=== PATIENT | female | born 1990 | race Two or more races ===

== ENCOUNTER 2017-06-09 05:50 | Inpatient (IN) | payer OTHER ==
[~2017-06-09] VITALS: Ht 172.7 cm; Wt 93.0 kg
[2017-06-09] MEDS ORDERED: AMPICILLIN 2 GM in SODIUM CHLORIDE 0.9% 100 ML IVPB STA (05:53)
[2017-06-09] MEDS ORDERED: OXYTOCIN 30U/ 0.9% NaCL 500ML 500 ML IV ONE (05:53)
[2017-06-09] MEDS ORDERED: OXYTOCIN 30U/ 0.9% NaCL 500ML 500 ML IV PRN (05:53)
[2017-06-09] MEDS ORDERED: ONDANSETRON 2MG/ML, 2ML IVPush PRN ×2 (06:00→11:00)
[2017-06-09] MEDS ORDERED: PLEASE ENTER ALLERGIES MC SCH (06:00)
[2017-06-09] MEDS ORDERED: FENTANYL PF 100 MCG/2ML IVPush PRN (06:00)
[2017-06-09] MEDS ORDERED: FENTANYL PF 100 MCG/2ML IV PRN (06:00)
[2017-06-09] MEDS: LACTATED RINGERS 1,000 ML IV SCH ×5 (06:13→21:53)
[2017-06-09 06:14] VITALS: BP 120/79
[2017-06-09 06:15] LABS: BASOPHILS # (AUTO) 0.04 x10^3/uL (0-0.1); BASOPHILS % (AUTO) 0 % (0-1); EOSINOPHILS # (AUTO) 0.07 x10^3/uL (0-0.4); EOSINOPHILS % (AUTO) 1 % (1-7); LYMPHOCYTES # (AUTO) 1.84 x10^3/uL (1-3.4); LYMPHOCYTES % (AUTO) 19 % (22-44); MD NO; MEAN CORPUSCULAR HGB CONC 33.9 g/dL (32.4-35.8); MEAN CORPUSCULAR VOLUME 91.6 fL (80-100); MEAN PLATELET VOLUME 8.6 fL (7.4-10.4); MONOCYTES # (AUTO) 0.76 x10^3/uL (0.2-0.8); MONOCYTES % (AUTO) 8 % (2-9); NEUTROPHILS # (AUTO) 7.14 x10^3/uL (1.8-6.8); NEUTROPHILS % (AUTO) 73 % (42-75); PLATELET COUNT 191 x10^3/uL (130-400); RED BLOOD COUNT 3.93 x10^6/uL (3.82-5.3); RED CELL DISTRIBUTION WIDTH 13.1 % (9.6-15.2)
[2017-06-09] MEDS ORDERED: PREN-3 PO (06:21)
[2017-06-09] MEDS ORDERED: NEWBORN KIT ONE (06:25)
[2017-06-09] MEDS ORDERED: FLU VACC QS2017-18 (36MOS+) UP/PF 0.5 ML IM-VACC ONE (06:30)
[2017-06-09] MEDS ORDERED: FENTANYL PF 100 MCG/2ML ONE (10:07)
[2017-06-09] MEDS ORDERED: FENTANYL/BUPIV./NS/PF 250 ML EPIDCONT ONE ×2 (10:07→10:10)
[2017-06-09] MEDS ORDERED: BUPIVACAINE 0.25% ONE ×2 (10:08→10:10)
[2017-06-09] MEDS ORDERED: LIDOCAINE/PF 1.5%-EPI 1:200K, 30ML ONE (10:10)
[2017-06-09] MEDS ORDERED: EPHEDRINE 50 MG/ML, 1ML ONE (10:10)
[2017-06-09] MEDS: AMPICILLIN 1 GM in SODIUM CHLORIDE 0.9% 50 ML IVPB SCH ×3 (10:42→14:15)
[2017-06-09] MEDS ORDERED: FENTANYL/BUPIV./NS/PF 250 ML EPIDCONT SCH (10:47)
[2017-06-09] MEDS ORDERED: LACTATED RINGERS 1,000 ML IVBOLUS PRN (11:00)
[2017-06-09] MEDS ORDERED: EPHEDRINE 50 MG/ML, 1ML IVPush PRN (11:00)
[2017-06-09] MEDS ORDERED: OXYTOCIN 30U/ 0.9% NaCL 500ML 0 ML ONE (14:05)
[2017-06-09] MEDS ORDERED: MISOPROSTOL 200 MCG TABLET ONE (14:05)
[2017-06-09] MEDS ORDERED: LIDOCAINE 1%, 20ML ONE (14:05)
[2017-06-09] MEDS: OXYTOCIN 30U/ 0.9% NaCL 500ML 500 ML IV SCH (15:41)
[2017-06-09] MEDS ORDERED: MISOPROSTOL 200 MCG TABLET SL PRN (16:00)
[2017-06-09] MEDS ORDERED: ONDANSETRON 2MG/ML, 2ML IV PRN (16:00)
[2017-06-09] MEDS ORDERED: OXYcodone/APAP 5/325MG TABLET PO PRN (16:00)
[2017-06-09] MEDS ORDERED: OXYcodone IR 5MG TABLET PO PRN (16:00)
[2017-06-09] MEDS ORDERED: IBUPROFEN 600 MG TABLET ONE (16:32)
[2017-06-09] MEDS: IBUPROFEN 600 MG TABLET PO PRN ×2 (16:33→22:02)
[2017-06-09 18:05] VITALS: BP 111/65
[2017-06-09 19:00] VITALS: BP 101/64
[2017-06-09] MEDS ORDERED: DIPH,PERTUSS(ACELL),TET VAC/PF NC IM-VACC ONE (19:30)
[2017-06-09] MEDS: DOCUSATE 100 MG CAPSULE PO PRN (22:01)
[2017-06-09 23:30] VITALS: BP 108/69
[2017-06-10 00:09] LABS: BASOPHILS # (AUTO) 0.07 x10^3/uL (0-0.1); BASOPHILS % (AUTO) 1 % (0-1); EOSINOPHILS # (AUTO) 0.03 x10^3/uL (0-0.4); EOSINOPHILS % (AUTO) 0 % (1-7); LYMPHOCYTES % (AUTO) 14 % (22-44); MD NO; MEAN CORPUSCULAR HGB CONC 33.5 g/dL (32.4-35.8); MEAN CORPUSCULAR VOLUME 92.6 fL (80-100); MEAN PLATELET VOLUME 9.1 fL (7.4-10.4); MONOCYTES % (AUTO) 7 % (2-9); NEUTROPHILS # (AUTO) 11.57 x10^3/uL (1.8-6.8); NEUTROPHILS % (AUTO) 79 % (42-75); PLATELET COUNT 184 x10^3/uL (130-400); RED BLOOD COUNT 3.48 x10^6/uL (3.82-5.3); RED CELL DISTRIBUTION WIDTH 13.7 % (9.6-15.2)
[2017-06-10] MEDS: OXYTOCIN 30U/ 0.9% NaCL 500ML 500 ML IV SCH (01:41)
[2017-06-10] MEDS: LACTATED RINGERS 1,000 ML IV SCH (02:47)
[2017-06-10 04:05] VITALS: BP 100/58
[2017-06-10] MEDS: IBUPROFEN 600 MG TABLET PO PRN ×2 (05:08→10:40)
[2017-06-10] MEDS ORDERED: FLU VACC QS2017-18 (36MOS+) UP/PF 0.5 ML IM-VACC ONE (06:00)
[2017-06-10 07:20] VITALS: BP 124/76
[2017-06-10] MEDS: DOCUSATE 100 MG CAPSULE PO PRN (07:33)
[2017-06-10] MEDS ORDERED: PRENATAL VIT/IRON/FA 1 EACH TABLET PO SCH (09:00)
[2017-06-10] MEDS ORDERED: DOCU-131 PO (09:55)
[2017-06-10] MEDS ORDERED: IBUP-1222 PO (09:55)
== END 2017-06-10 16:19 | disposition home or self-care (01) | DRG 775 ==
LOC: LDIP 05:50 → 2NW 17:46
PROVIDERS: ADMIT Obstetrics & Gynecology; ATTEND Obstetrics & Gynecology
PROC: 10E0XZZ Delivery of Products of Conception, External Approach (ICD-10-PCS; principal; 2017-06-09)
PROC: 0KQM0ZZ Repair Perineum Muscle, Open Approach (ICD-10-PCS; 2017-06-09)
PROC: 3E0R3BZ Introduction of Anesthetic Agent into Spinal Canal, Percutaneous Approach (ICD-10-PCS; 2017-06-09)
PROC: 00HU33Z Insertion of Infusion Device into Spinal Canal, Percutaneous Approach (ICD-10-PCS; 2017-06-09)
PROC: 10907ZC Drainage of Amniotic Fluid, Therapeutic from Products of Conception, Via Natural or Artificial Opening (ICD-10-PCS; 2017-06-09)
DX: O99.824 Streptococcus B carrier state complicating childbirth (principal); Z37.0 Single live birth; O70.1 Second degree perineal laceration during delivery; Z3A.39 39 weeks gestation of pregnancy
CPT/HCPCS: 36415; 85025; 86850; 86900; 90715; J0290; J3490; J2590; J3010; J7120